=== PATIENT | male | born 1935 | race Hispanic/Latino ===

== ENCOUNTER 2019-10-11 13:14 | Emergency (ER) | payer MEDICARE ==
[2019-10-11 13:44] VITALS: BP 168/68
--- NOTE | 2019-10-11 14:36 | Emergency Department Report ---
- General Chief complaint: Weakness Stated complaint: GENERAL WEAKNESS Time Seen by Provider: 10/11/19 14:20 Source: patient Mode of arrival: Stretcher Limitations: No Limitations - History of Present Illness Initial comments: 83-year male with a past medical history of chronic A. fib currently on aspirin 81 mg and melanoma currently on immunotherapy Opdivo once a month (last melissa atment 2 weeks ago) presents to the hospital planing of 2 days of generalized weakness with increased lightheadedness and dyspnea on exertion today. Patient complains of mild intermittent headache which is currently not present. He denies chest pain, abdominal pain, nausea, vomiting, poor appetite, dysuria, diarrhea, melena, hematochezia, recent travel, calf tenderness, leg edema, history of PE/DVT. Patient was on Xarelto in the past but discontinued due to GI bleeding without identifiable source after GI work-up. Patient states he only takes aspirin and a glaucoma medication and denies other medications at this time. PMD: Dr. Maulik Putnam, solutions consultant: Dr. Hi with [facility] - Related Data Allergies Allergy/AdvReac Type Severity Reaction Status Date / Time bacitracin Allergy Unknown Verified 10/11/19 13:37 [From Neosporin ([id number])] neomycin Allergy Unknown Verified 10/11/19 13:37 [From Neosporin ([id number])] polymyxin B Allergy Unknown Verified 10/11/19 13:37 [From Neosporin ([id number])] ED Review of Systems ROS: Stated complaint: GENERAL WEAKNESS Other details as noted in HPI Comment: All other systems reviewed and negative ED Past Medical Hx - Past Medical History Previous Medical History?: Yes Additional medical history: afib, skin cancer - Surgical History Past Surgical History?: No - Social History Smoking Status: Never Smoker Substance Use Type: None ED Physical Exam - General Limitations: No Limitations - Other Other exam information: General: No acute distress Head: Atraumatic Eyes: normal appearance ENT: Moist mucous membranes Neck: Normal appearance, no midline tenderness Chest: Clear to auscultation bilaterally CV: Irregular rhythm normal rate greater than 60 on exam Abdomen: Soft, normal bowel sounds, nontender, nondistended, no rebound or guarding Back: Normal inspection Extremity: Normal inspection, full range of motion, no calf tenderness or leg edema Neuro: Alert O x 3, no facial asymmetry, speech clear, no gross motor sensory deficit, [id number] function intact Psych: Appropriate behavior Skin: No rash - Assessment Assessment Interval: Baseline - Level of Consciousness 1a. Level of Consciousness: alert/keenly responsive - LOC Questions 1b. LOC Questions: answers both correctly - LOC Command 1c. LOC Commands: performs tasks correctly - Best Gaze 2. Best Gaze: normal - Visual 3. Visual: no visual loss - Facial Palsy 4. Facial Palsy: normal symmetrical movement - Motor Arm 5a. Motor Arm Left: no drift 5b. Motor Arm Right: no drift - Motor Leg 6a. Motor Leg Left: no drift 6b. Motor Leg Right: no drift - Limb Ataxia 7. Limb Ataxia: absent - Sensory 8. Sensory: normal - Best Language 9. Best Language: no aphasia - Dysarthria 10. Dysarthria: normal - Extinction and Inattention 11. Extinction/Inattention: no abnormality - Scoring Total Score: 0 Stroke Severity: No Stroke Symptoms ED Course Vital Signs 10/11/19 13:37 Temperature 98.5 F Pulse Rate 67 Respiratory 16 Rate Blood Pressure 168/68 O2 Sat by Pulse 97 Oximetry - Reevaluation(s) Reevaluation #1: 10/11/19 16:45 pt not sure if he wants to be admitted pt will be walked around the department to see how he feels then he will make a decision. 10/11/19 16:58 pt states he feels better and declines admission at this time ED Medical Decision Making - Lab Data Result diagrams: 10/11/19 14:43 10/11/19 14:43 Lab Results 10/11/19 10/11/19 10/11/19 Range/Units 14:43 14:43 14:43 WBC 7.7 (4.5-11.0) K/mm3 RBC 4.46 (3.65-5.03) M/mm3 Hgb 15.0 (11.8-15.2) gm/dl Hct 43.9 (35.5-45.6) % MCV 98 H (84-94) fl MCH 34 H (28-32) pg MCHC 34 (32-34) % RDW 13.7 (13.2-15.2) % Plt Count 201 (140-440) K/mm3 Lymph % (Auto) 14.1 (13.4-35.0) % [place] % (Auto) 9.5 H (0.0-7.3) % Eos % (Auto) 1.9 (0.0-4.3) % Baso % (Auto) 0.4 (0.0-1.8) % Lymph # 1.1 L (1.2-5.4) K/mm3 [place] # 0.7 (0.0-0.8) K/mm3 Eos # 0.1 (0.0-0.4) K/mm3 Baso # 0.0 (0.0-0.1) K/mm3 Seg Neutrophils % 74.1 H (40.0-70.0) % Seg Neutrophils # 5.7 (1.8-7.7) K/mm3 PT 13.4 (12.2-14.9) Sec. INR 1.01 (0.87-1.13) APTT 27.8 (24.2-36.6) Sec. D-Dimer 217.57 (0-234) ng/mlDDU Sodium 140 (137-145) mmol/L Potassium 4.2 (3.6-5.0) mmol/L Chloride 100.9 (98-107) mmol/L Carbon Dioxide 23 (22-30) mmol/L Anion Gap 20 mmol/L BUN 13 (9-20) mg/dL Creatinine 0.8 (0.8-1.5) mg/dL Estimated GFR > 60 ml/min BUN/Creatinine Ratio 16 % Glucose 95 (75-100) mg/dL Calcium 9.5 (8.4-10.2) mg/dL Magnesium 2.30 (1.7-2.3) mg/dL Total Bilirubin 0.40 (0.1-1.2) mg/dL AST 27 (5-40) units/L ALT 16 (7-56) units/L Alkaline Phosphatase 72 (35-129) units/L Troponin T < 0.010 (0.00-0.029) ng/mL Total Protein 7.3 (6.3-8.2) g/dL Albumin 4.1 (3.9-5) g/dL Albumin/Globulin Ratio 1.3 % TSH (0.270-4.200) mlU/mL Free T4 (0.76-1.46) ng/dL Urine Color (Yellow) Urine Turbidity (Clear) Urine pH (5.0-7.0) Ur Specific Bar[place] (1.003-1.030) Urine Protein (Negative) mg/dL Urine Glucose (UA) (Negative) mg/dL Urine Ketones (Negative) mg/dL Urine Blood (Negative) Urine Nitrite (Negative) Urine Bilirubin (Negative) Urine Urobilinogen (<2.0) mg/dL Ur Leukocyte Esterase (Negative) Urine WBC (Auto) (0.0-6.0) /HPF Urine RBC (Auto) (0.0-6.0) /HPF 10/11/19 10/11/19 Range/Units 14:43 15:01 WBC (4.5-11.0) K/mm3 RBC (3.65-5.03) M/mm3 Hgb (11.8-15.2) gm/dl Hct (35.5-45.6) % MCV (84-94) fl MCH (28-32) pg MCHC (32-34) % RDW (13.2-15.2) % Plt Count (140-440) K/mm3 Lymph % (Auto) (13.4-35.0) % [place] % (Auto) (0.0-7.3) % Eos % (Auto) (0.0-4.3) % Baso % (Auto) (0.0-1.8) % Lymph # (1.2-5.4) K/mm3 [place] # (0.0-0.8) K/mm3 Eos # (0.0-0.4) K/mm3 Baso # (0.0-0.1) K/mm3 Seg Neutrophils % (40.0-70.0) % Seg Neutrophils # (1.8-7.7) K/mm3 PT (12.2-14.9) Sec. INR (0.87-1.13) APTT (24.2-36.6) Sec. D-Dimer (0-234) ng/mlDDU Sodium (137-145) mmol/L Potassium (3.6-5.0) mmol/L Chloride (98-107) mmol/L Carbon Dioxide (22-30) mmol/L Anion Gap mmol/L BUN (9-20) mg/dL Creatinine (0.8-1.5) mg/dL Estimated GFR ml/min BUN/Creatinine Ratio % Glucose (75-100) mg/dL Calcium (8.4-10.2) mg/dL Magnesium (1.7-2.3) mg/dL Total Bilirubin (0.1-1.2) mg/dL AST (5-40) units/L ALT (7-56) units/L Alkaline Phosphatase (35-129) units/L Troponin T (0.00-0.029) ng/mL Total Protein (6.3-8.2) g/dL Albumin (3.9-5) g/dL Albumin/Globulin Ratio % TSH 4.950 H (0.270-4.200) mlU/mL Free T4 0.96 (0.76-1.46) ng/dL Urine Color Straw (Yellow) Urine Turbidity Clear (Clear) Urine pH 6.0 (5.0-7.0) Ur Specific Barling 1.004 (1.003-1.030) Urine Protein <15 mg/dl (Negative) mg/dL Urine Glucose (UA) Neg (Negative) mg/dL Urine Ketones Neg (Negative) mg/dL Urine Blood Sm (Negative) Urine Nitrite Neg (Negative) Urine Bilirubin Neg (Negative) Urine Urobilinogen < 2.0 (<2.0) mg/dL Ur Leukocyte Esterase Neg (Negative) Urine WBC (Auto) < 1.0 (0.0-6.0) /HPF Urine RBC (Auto) 2.0 (0.0-6.0) /HPF - EKG Data -: EKG Interpreted by Fl EKG shows normal: ST-T waves (No STEMI, anterior septal infarct) Rate: bradycardia (53) - EKG Data When compared to previous EKG there are: previous EKG unavailable - Radiology Data Radiology results: report reviewed CHEST 1 VIEW INDICATION: MAIN: Weakness, sob TODAY. COMPARISON: None FINDINGS: Support devices: Right Tteohr-d-Xfak terminates in the lower SVC. Heart: Within normal limits. Lungs/Pleura: No acute air space or interstitial disease. Additional findings: None. IMPRESSION: No acute findings. CT HEAD WITHOUT CONTRAST INDICATION / CLINICAL INFORMATION: gen weakness, hx of melanoma, intermittent mendenhall. TECHNIQUE: All CT scans at this location are performed using CT dose reduction for ALARA by means of automated exposure control. COMPARISON: None available. FINDINGS: HEMORRHAGE: No evidence of intracranial hemorrhage or extra-axial fluid collection. EXTRA-AXIAL SPACES: Cortical sulci, sylvian fissures and basilar cisterns have an unremarkable appearance. VENTRICULAR SYSTEM: The ventricular system is of normal size and configuration. CEREBRAL PARENCHYMA: No suspicious hypodensities. Bilateral benign basal ganglia calcifications. There is no indication of recent infarction. MIDLINE SHIFT OR HERNIATION: There is no mass effect. CEREBELLUM / BRAINSTEM: Brainstem and cerebellum have an unremarkable appearance. INTRACRANIAL VESSELS:No abnormalities are identified on this noncontrast head CT. ORBITS: visualized portions of the orbits have an unremarkable appearance. SOFT TISSUES of HEAD: No significant abnormality. CALVARIUM: Evaluation of bone windows reveals no abnormalities. PARANASAL SINUSES / MASTOID AIR CELLS: Paran victor hugo sinuses are free from inflammatory mucosal disease. Mastoid air cells are normally pneumatized. ADDITIONAL FINDINGS: None. IMPRESSION: 1. No acute intracranial abnormality. - Medical Decision Making Admission has been recommended due to patient's symptoms of shortness of breath and generalized weakness today. ED work-up is unremarkable and observation and inpatient cardiac evaluation recommended. Patient ambulated in the ED and states he feels normal and does not want admission at this time. Patient encouraged to follow-up very closely with his primary care doctor and solutions consultant for reassessment and to return if symptoms worsen. Patient's son is a firebrick layer helper and states that they will closely observe him tonight. - Differential Diagnosis Infection, arrhythmia, PE, anemia, dehydration, thyroid disease, bradycardi Critical Care Time: No Critical care attestation.: If time is entered above; I have spent that time in minutes in the direct care of this critically ill patient, excluding procedure time. ED Disposition Clinical Impression: Chronic atrial fibrillation, Bradycardia, Generalized weakness, Melanoma, SOB (shortness of breath) Disposition: DC-01 TO HOME OR SELFCARE Is pt being admited?: No Condition: Stable Instructions: Atrial Fibrillation (ED), Weakness (ED) Additional Instructions: Follow-up with your doctor or doctor/clinic provided. Return if symptoms worsen as indicated by your discharge instructions. Referrals: ZAIRA-ALEJANDRO KAMARA MD [Staff Physician] - [facility] (1-2 days) JACOB PUTNAM MD [Primary Care Provider] - [facility] (1-2 days) Time of Disposition: 16:40 (Dr Rivera/hosp)
--- NOTE | 2019-10-11 15:10 | XRay Report ---
CHEST 1 VIEW INDICATION: MAIN: Weakness, sob TODAY. COMPARISON: None FINDINGS: Support devices: Right Qbcvzu-n-Jazq terminates in the lower SVC. Heart: Within normal limits. Lungs/Pleura: No acute air space or interstitial disease. Additional findings: None. IMPRESSION: No acute findings. Signer Name: Subhash Montero Jr, MD Signed: 10/11/2019 3:05 PM Workstation Name: [id number]
[2019-10-11 15:12] LABS: Basophils % (Auto) 0.4 % (0.0-1.8); Eosinophils # (Auto) 0.1 K/mm3 (0.0-0.4); Eosinophils % (Auto) 1.9 % (0.0-4.3); Hematocrit 43.9 % (35.5-45.6); Lymphocytes # (Auto) 1.1 K/mm3 (1.2-5.4); Lymphocytes % (Auto) 14.1 % (13.4-35.0); Mean Corpuscular HGB Conc 34 % (32-34); Mean Corpuscular Volume 98 fl (84-94); Monocytes # (Auto) 0.7 K/mm3 (0.0-0.8); Monocytes % (Auto) 9.5 % (0.0-7.3); Platelet Count 201 K/mm3 (140-440); Red Blood Count 4.46 M/mm3 (3.65-5.03); Red Cell Distribution Width 13.7 % (13.2-15.2)
[2019-10-11 15:21] LABS: INR 1.01 (0.87-1.13)
[2019-10-11 15:22] LABS: Partial Thromboplastin Time 27.8 Sec. (24.2-36.6)
[2019-10-11 15:25] LABS: Bilirubin,Urine NEG (Negative); Blood,Urine SM (Negative); Color,Urine Straw (Yellow); Protein,Urine <15 mg/dL mg/dL (Negative); Urobilinogen,Urine < 2.0 mg/dL (<2.0); WBC,Urine < 1.0 /HPF (0.0-6.0)
[2019-10-11 15:25] LABS: Alanine Aminotransferase 16 units/L (7-56); Albumin 4.1 g/dL (3.9-5); BUN/Creatinine Ratio 16; Blood Urea Nitrogen 13 mg/dL (9-20); Calcium 9.5 mg/dL (8.4-10.2); Hemolysis Index 11
[2019-10-11 15:31] LABS: Free T4 (Free Thyroxine) 0.96 ng/dL (0.76-1.46)
--- NOTE | 2019-10-11 16:27 | Cat Scan Report ---
CT HEAD WITHOUT CONTRAST INDICATION / CLINICAL INFORMATION: gen weakness, hx of melanoma, intermittent mendenhall. TECHNIQUE: All CT scans at this location are performed using CT dose reduction for ALARA by means of automated e xposure control. COMPARISON: None available. FINDINGS: HEMORRHAGE: No evidence of intracranial hemorrhage or extra-axial fluid collection. EXTRA-AXIAL SPACES: Cortical sulci, sylvian fissures and basilar cisterns have an unremarkable appear ance. VENTRICULAR SYSTEM: The ventricular system is of normal size and configuration. CEREBRAL PARENCHYMA: No suspicious hypodensities. Bilateral benign basal ganglia calcifications. Ther e is no indication of recent infarction. MIDLINE SHIFT OR HERNIATION: There is no mass effect. CEREBELLUM / BRAINSTEM: Brainstem and cerebellum have an unremarkable appearance. INTRACRANIAL VESSELS:No abnormalities are identified on this noncontrast head CT. ORBITS: visualized portions of the orbits have an unremarkable appearance. SOFT TISSUES of HEAD: No significant abnormality. CALVARIUM: Evaluation of bone windows reveals no abnormalities. PARANASAL SINUSES / MASTOID AIR CELLS: Paranasal sinuses are free from inflammatory mucosal disease. Mastoid air cells are normally pneumatized. ADDITIONAL FINDINGS: None. IMPRESSION: 1. No acute intracranial abnormality. Signer Name: Alejandro Griffin MD Signed: 10/11/2019 4:23 PM Workstation Name: [id number]
--- NOTE | 2019-10-11 16:40 | History and Physical Report ---
History of Present Illness Chief complaint: I feel weak I think he may have overdid it History of present illness: 83 YO Male with Atrial Fib on ASA, Melanoma on currently on immunotherapy with Opdivo (last treatment 2 weeks ago). Patient states that he has experienced generalized weakness over the past 2 days with worsening symptoms over the past 12 hours. Patient also acknowledges lightheadedness as well as dyspnea on exertion. EMS notified and upon arrival the patient was found to be in distress and subsequently transported to [facility] for further care and evaluation. Patient seen and evaluated in the emergency department. Lab and imaging studies reviewed. Patient found to have generalized weakness suspect is secondary to immunotherapy. Patient treated with IV fluid resuscitation therapy with with improvement in symptoms. Pt patient placed in observation status for further observation. Advanced care planning conducted in ED. Past History Past Medical History: cancer Past Surgical History: No surgical history, Other (Reviewed) Social history: , lives with family Family history: no significant family history (Reviewed) Medications and Allergies Allergies Allergy/AdvReac Type Severity Reaction Status Date / Time bacitracin Allergy Unknown Verified 10/11/19 13:37 [From Neosporin ([id number])] neomycin Allergy Unknown Verified 10/11/19 13:37 [From Neosporin ([id number])] polymyxin B Allergy Unknown Verified 10/11/19 13:37 [From Neosporin ([id number])] Review of Systems Constitutional: weakness, no weight loss, no weight gain, no fever, no chills Ears, nose, mouth and throat: no ear pain, no ear discharge, no tinnitis, no nasal discharge Cardiovascular: no chest pain, no orthopnea, no palpitations, no rapid/irregular heart beat, no syncope Respiratory: no cough, no cough with sputum, no excessive sputum, no shortness of breath Gastrointestinal: no abdominal pain, no nausea, no vomiting, no constipation, no change in bowel habits, no hematemesis Genitourinary Male: no hematuria, no flank pain, no discharge, no urinary frequency, no urinary hesitancy, no nocturia Rectal: no pain, no incontinence, no bleeding Musculoskeletal: no neck stiffness, no neck pain, no arm numbness/tingling, no low back pain, no leg numbness/tingling, no redness of joints Integumentary: no rash, no pruritis, no redness, no sores Psychiatric: no anxiety, no memory loss, no change in sleep habits, no sleep disturbances, no insomnia, no change in appetite, no change in libido, no suicidal ideation, no disorientation, no hallucinations Endocrine: no cold intolerance, no heat intolerance, no polyphagia, no polydipsia, no polyuria, no excessive sweating, no flushing Hematologic/Lymphatic: no easy bruising, no easy bleeding, no lymphadenopathy, no lymphedema Allergic/Immunologic: no urticaria, no wheezing, no persistent infections, no a naphylaxis, no angioedema Exam - Constitutional Vitals: Temp Pulse Resp BP Pulse Ox 98.5 F 67 16 168/68 97 10/11/19 13:37 10/11/19 13:37 10/11/19 13:37 10/11/19 13:37 10/11/19 13:37 General appearance: Present: no acute distress, well-nourished - EENT Eyes: Present: PERRL ENT: hearing intact, clear oral mucosa - Neck Neck: Present: supple, normal ROM - Respiratory Respiratory effort: normal Respiratory: bilateral: CTA - Cardiovascular Heart Sounds: Present: S1 & S2. Absent: rub, click - Extremities Extremities: pulses symmetrical, No edema Peripheral Pulses: within normal limits - Abdominal General gastrointestinal: Present: soft, non-tender, non-distended, normal bowel sounds Male genitourinary: Present: normal - Integumentary Integumentary: Present: clear, warm, dry - Musculoskeletal Musculoskeletal: gait normal, strength equal bilaterally - Psychiatric Psychiatric: appropriate mood/affect, intact judgment & insight - Neurologic Neurologic: CNII-XII intact, moves all extremities Results - Labs CBC & Chem 7: 10/11/19 14:43 10/11/19 14:43 Labs: Abnormal lab results 10/11/19 10/11/19 Range/Units 14:43 14:43 MCV 98 H (84-94) fl MCH 34 H (28-32) pg Mcminn % (Auto) 9.5 H (0.0-7.3) % Lymph # 1.1 L (1.2-5.4) K/mm3 Seg Neutrophils % 74.1 H (40.0-70.0) % TSH 4.950 H (0.270-4.200) mlU/mL Assessment and Plan - Patient Problems (1) Chronic atrial fibrillation Current Visit: Yes Status: Acute Plan to address problem: Continue antiplatelet therapy/anticoagulation with full dose aspirin, supportive care, (2) Generalized weakness Current Visit: Yes Status: Acute Plan to address problem: Suspected secondary to volume depletion, as well as immunomodulators therapy. IV fluid resuscitation therapy, supportive care. (3) Melanoma Current Visit: Yes Status: Acute Plan to address problem: Continue immunomodulation therapy. Supportive care, outpatient oncology follow- up. (4) Advance care planning Current Visit: Yes Status: Acute Plan to address problem: Patient is full code, disease education conducted, patient and family acknowledged understanding care plan.
[2019-10-11] MEDS ORDERED: ACETAMINOPHEN 325 MG TAB PO PRN (16:46)
[2019-10-11] MEDS ORDERED: ONDANSETRON 4 MG/2 ML INJ IV PRN (16:46)
[2019-10-11] MEDS ORDERED: ALBUTEROL 2.5 MG/3 ML NEBU IH PRN (16:46)
[2019-10-11] MEDS ORDERED: SODIUM CHLORIDE 0.9% 1000 ML 1,000 ML IV SCH (17:00)
== END 2019-10-11 17:45 | disposition home or self-care (01) ==
LOC: ED 13:14
DX: I48.20 Chronic atrial fibrillation, unspecified (principal); R06.02 Shortness of breath; R53.1 Weakness; R00.1 Bradycardia, unspecified; C43.9 Malignant melanoma of skin, unspecified; Z85.3 Personal history of malignant neoplasm of breast; Z79.899 Other long term (current) drug therapy; Z88.8 Allergy status to other drugs, medicaments and biological substances
CPT/HCPCS: 36415; 70450; 71045; 80053; 81001; 83735; 83880; 84439; 84443; 84484; 85025; 85379; 85610; 85730; 93005; 93010

== ENCOUNTER 2022-02-27 21:46 | Inpatient (IN) | payer MEDICARE ==
--- NOTE | 2022-02-27 22:38 | XRay Report ---
CHEST 1 VIEW INDICATION / CLINICAL INFORMATION: weakness. COMPARISON: Chest x-ray 10/11/2019 FINDINGS: SUPPORT DEVICES: Right-sided venous access device is stable. HEART / MEDIASTINUM: Borderline cardiomegaly, stable. LUNGS / PLEURA: Lungs are clear for degree of inspiration and technique utilized. BONES: No significant osseous abnormality. ADDITIONAL FINDINGS: No significant additional findings. IMPRESSION: 1. No active cardiopulmonary disease. Signer Name: Gordon Mota II, MD Signed: 02/27/2022 10:34 PM Workstation Name: [id number]
--- NOTE | 2022-02-27 22:48 | Cat Scan Report ---
CT HEAD WITHOUT CONTRAST INDICATION / CLINICAL INFORMATION: blurred/dizziness. TECHNIQUE: CT head was performed without administration of intravenous contrast. All CT scans at this location are performed using CT dose reduction for ALARA by means of automated exposure control. COMPARISON: None available. FINDINGS: CEREBRAL HEMISPHERES: Generalized atrophy and bilateral regions of periventricular white matter hypoa ttenuation compatible with microvascular ischemia are demonstrated. No midline shift. Basal cisterns patent. HEMORRHAGE: None. CEREBELLUM / BRAINSTEM: No significant abnormality. ORBITS: No significant abnormality. Prior bilateral cataract surgery. SOFT TISSUES: No significant abnormality. SKULL: No significant abnormality. PARANASAL SINUSES / MASTOID AIR CELLS: Normal as visualized. ADDITIONAL FINDINGS: None. IMPRESSION: 1. No acute intracranial abnormality. Signer Name: Gordon Mota II, MD Signed: 02/27/2022 10:44 PM Workstation Name: [id number]
[2022-02-27 22:57] LABS: Basophils % (Auto) 0.3 % (0.0-1.8); Eosinophils # (Auto) 0.2 K/mm3 (0.0-0.4); Hematocrit 43.4 % (35.5-45.6); Hemoglobin 14.8 gm/dl (11.8-15.2); Lymphocytes # (Auto) 1.4 K/mm3 (1.2-5.4); Lymphocytes % (Auto) 20.8 % (13.4-35.0); Mean Corpuscular HGB Conc 34 % (32-34); Mean Corpuscular Volume 97 fl (84-94); Monocytes # (Auto) 0.8 K/mm3 (0.0-0.8); Monocytes % (Auto) 12.8 % (0.0-7.3); Platelet Count 168 K/mm3 (140-440); Red Blood Count 4.46 M/mm3 (3.65-5.03); Red Cell Distribution Width 13.7 % (13.2-15.2)
[2022-02-27 23:08] LABS: INR 0.99 (0.87-1.13)
[2022-02-27 23:09] LABS: Partial Thromboplastin Time 29.6 Sec. (24.2-36.6)
[2022-02-27 23:14] LABS: Alanine Aminotransferase 36 units/L (7-56); Albumin 4.4 g/dL (3.9-5); BUN/Creatinine Ratio 16; Blood Urea Nitrogen 13 mg/dL (9-20); Calcium 10.1 mg/dL (8.4-10.2); Hemolysis Index 14
--- NOTE | 2022-02-28 00:32 | Emergency Department Report ---
ED General Adult HPI - General Chief complaint: Neuro Symptoms/Deficit Stated complaint: WEAKNESS, BLURRY VISION Time Seen by Provider: 02/27/22 21:57 Source: patient, EMS Mode of arrival: Stretcher Limitations: No Limitations - History of Present Illness Initial comments: Patient presents to the emergency department the chief complaint of blurred vision with a weak lower leg that occurred around 7:30 PM while he was at [employer]. Patient states the symptoms lasted for hour and a half. During the interval the patient left urgent drove home. Patient is status post a stroke 8 months ago. He denies any chest pain, shortness breath, abdominal pain -: Sudden Severity scale (0 -10): 0 Consistency: now resolved Improves with: none Worsens with: none Associated Symptoms: denies other symptoms Treatments Prior to Arrival: none - Related Data Allergies Allergy/AdvReac Type Severity Reaction Status Date / Time bacitracin Allergy Unknown Verified 02/27/22 22:22 [From Neosporin ([id number])] doxycycline Allergy Unknown Verified 02/27/22 22:22 neomycin Allergy Unknown Verified 02/27/22 22:22 [From Neosporin ([id number])] polymyxin B Allergy Unknown Verified 02/27/22 22:22 [From Neosporin ([id number])] Sulfa (Sulfonamide Allergy Unknown Verified 02/27/22 22:22 Antibiotics) ED Review of Systems ROS: Stated complaint: WEAKNESS, BLURRY VISION Other details as noted in HPI Comment: All other systems reviewed and negative Constitutional: denies: chills, fever Eyes: denies: eye pain, eye discharge, vision change ENT: denies: ear pain, throat pain Respiratory: denies: cough, shortness of breath, wheezing Cardiovascular: denies: chest pain, palpitations Endocrine: no symptoms reported Gastrointestinal: denies: abdominal pain, nausea, diarrhea Genitourinary: denies: urgency, dysuria Musculoskeletal: denies: back pain, joint swelling, arthralgia Skin: denies: rash, lesions Neurological: denies: headache, weakness, paresthesias Psychiatric: denies: anxiety, depression Hematological/Lymphatic: denies: easy bleeding, easy bruising ED Past Medical Hx - Past Medical History Previous Medical History?: Yes Hx CVA: Yes (8 mos ago) Additional medical history: afib, skin cancer - Surgical History Past Surgical History?: Yes Additional Surgical History: port right chest - Social History Smoking Status: Former Smoker Substance Use Type: Alcohol ED Physical Exam - General Limitations: No Limitations General appearance: alert, in no apparent distress - Head Head exam: Present: atraumatic, normocephalic - Eye Eye exam: Present: normal appearance, PERRL, EOMI - ENT ENT exam: Present: mucous membranes moist - Neck Neck exam: Present: normal inspection - Respiratory Respiratory exam: Present: normal lung sounds bilaterally. Absent: respiratory distress - Cardiovascular Cardiovascular Exam: Present: regular rate, normal rhythm. Absent: systolic murmur, diastolic murmur, rubs, gallop - GI/Abdominal GI/Abdominal exam: Present: soft, normal bowel sounds. Absent: distended, tenderness - Rectal Rectal exam: Present: deferred - Extremities Exam Extremities exam: Present: normal inspection - Back Exam Back exam: Present: normal inspection - Neurological Exam Neurological exam: Present: alert, oriented X3, CN II-XII intact. Absent: motor sensory deficit - Psychiatric Psychiatric exam: Present: normal affect, normal mood - Skin Skin exam: Present: warm, dry, intact, normal color. Absent: rash ED Course Vital Signs 02/27/22 02/27/22 02/27/22 22:15 22:46 23:00 Temperature 98.3 F Pulse Rate 65 61 64 Respiratory 13 13 17 Rate Blood Pressure 155/93 155/93 137/83 Blood Pressure 155/93 [Left] O2 Sat by Pulse 96 94 98 Oximetry 02/27/22 02/27/22 02/27/22 23:16 23:30 23:46 Temperature Pulse Rate 64 65 70 Respiratory 18 21 16 Rate Blood Pressure 163/84 155/93 142/79 Blood Pressure [Left] O2 Sat by Pulse 95 98 96 Oximetry 02/28/22 02/28/22 02/28/22 00:00 00:16 00:30 Temperature Pulse Rate 70 65 70 Respiratory 17 16 14 Rate Blood Pressure 142/79 142/79 157/76 Blood Pressure [Left] O2 Sat by Pulse 97 95 97 Oximetry 02/28/22 02/28/22 00:46 01:00 Temperature Pulse Rate 67 66 Respiratory 22 23 Rate Blood Pressure 178/90 178/90 Blood Pressure [Left] O2 Sat by Pulse 96 95 Oximetry ED Medical Decision Making - Lab Data Result diagrams: 02/27/22 22:35 02/27/22 22:35 Lab Results 02/27/22 02/27/22 02/27/22 Range/Units 22:35 22:35 22:35 WBC 6.6 (4.5-11.0) K/mm3 RBC 4.46 (3.65-5.03) M/mm3 Hgb 14.8 (11.8-15.2) gm/dl Hct 43.4 (35.5-45.6) % MCV 97 H (84-94) fl MCH 33 H (28-32) pg MCHC 34 (32-34) % RDW 13.7 (13.2-15.2) % Plt Count 168 (140-440) K/mm3 Lymph % (Auto) 20.8 (13.4-35.0) % [place] % (Auto) 12.8 H (0.0-7.3) % Eos % (Auto) 3.0 (0.0-4.3) % Baso % (Auto) 0.3 (0.0-1.8) % Lymph # (Auto) 1.4 (1.2-5.4) K/mm3 [place] # (Auto) 0.8 (0.0-0.8) K/mm3 Eos # (Auto) 0.2 (0.0-0.4) K/mm3 Baso # (Auto) 0.0 (0.0-0.1) K/mm3 Seg Neutrophils % 63.1 (40.0-70.0) % Seg Neutrophils # 4.1 (1.8-7.7) K/mm3 PT 14.2 (12.2-14.9) Sec. INR 0.99 (0.87-1.13) APTT 29.6 (24.2-36.6) Sec. Sodium 141 (137-145) mmol/L Potassium 4.1 (3.6-5.0) mmol/L Chloride 100.1 (98-107) mmol/L Carbon Dioxide 30 (22-30) mmol/L Anion Gap 15 mmol/L BUN 13 (9-20) mg/dL Creatinine 0.8 (0.8-1.3) mg/dL Estimated GFR > 60 ml/min BUN/Creatinine Ratio 16 % Glucose 126 H (75-100) mg/dL Calcium 10.1 (8.4-10.2) mg/dL Magnesium 2.10 (1.7-2.3) mg/dL Total Bilirubin 0.70 (0.1-1.2) mg/dL AST 38 (5-40) units/L ALT 36 (7-56) units/L Alkaline Phosphatase 106 (35-129) units/L Troponin T (0.00-0.029) ng/mL Total Protein 7.2 (6.3-8.2) g/dL Albumin 4.4 (3.9-5) g/dL Albumin/Globulin Ratio 1.6 % 02/27/22 Range/Units 22:35 WBC (4.5-11.0) K/mm3 RBC (3.65-5.03) M/mm3 Hgb (11.8-15.2) gm/dl Hct (35.5-45.6) % MCV (84-94) fl MCH (28-32) pg MCHC (32-34) % RDW (13.2-15.2) % Plt Count (140-440) K/mm3 Lymph % (Auto) (13.4-35.0) % [place] % (Auto) (0.0-7.3) % Eos % (Auto) (0.0-4.3) % Baso % (Auto) (0.0-1.8) % Lymph # (Auto) (1.2-5.4) K/mm3 [place] # (Auto) (0.0-0.8) K/mm3 Eos # (Auto) (0.0-0.4) K/mm3 Baso # (Auto) (0.0-0.1) K/mm3 Seg Neutrophils % (40.0-70.0) % Seg Neutrophils # (1.8-7.7) K/mm3 PT (12.2-14.9) Sec. INR (0.87-1.13) APTT (24.2-36.6) Sec. Sodium (137-145) mmol/L Potassium (3.6-5.0) mmol/L Chloride (98-107) mmol/L Carbon Dioxide (22-30) mmol/L Anion Gap mmol/L BUN (9-20) mg/dL Creatinine (0.8-1.3) mg/dL Estimated GFR ml/min BUN/Creatinine Ratio % Glucose (75-100) mg/dL Calcium (8.4-10.2) mg/dL Magnesium (1.7-2.3) mg/dL Total Bilirubin (0.1-1.2) mg/dL AST (5-40) units/L ALT (7-56) units/L Alkaline Phosphatase (35-129) units/L Troponin T < 0.010 (0.00-0.029) ng/mL Total Protein (6.3-8.2) g/dL Albumin (3.9-5) g/dL Albumin/Globulin Ratio % - EKG Data EKG shows normal: sinus rhythm - EKG Data Interpretation: other (afib; inverted T waves lateral leads ) - Radiology Data Radiology results: report reviewed - Medical Decision Making discussed results with patient Critical care attestation.: If time is entered above; I have spent that time in minutes in the direct care of this critically ill patient, excluding procedure time. ED Disposition Clinical Impression: Blurred vision Disposition: 09 ADMITTED INPATIENT Is pt being admited?: Yes Does the pt Need Aspirin: No Condition: Stable Instructions: Blurred Vision, Adult Referrals: PRIMARY CARE, [Primary Care Provider] - 3-5 Days
[2022-02-28] MEDS ORDERED: ASPIRIN 81 MG TAB CHEW PO ONE (01:29)
[2022-02-28] MEDS ORDERED: ONDANSETRON 4 MG/2 ML INJ IV PRN (04:15)
[2022-02-28] MEDS ORDERED: ACETAMINOPHEN 325 MG TAB PO PRN (04:15)
[2022-02-28] MEDS ORDERED: SODIUM CHLORIDE 0.9% 1000 ML 1,000 ML IV SCH (04:15)
[2022-02-28] MEDS ORDERED: MORPHINE 4 MG/1 ML INJ IV PRN (04:15)
[2022-02-28] MEDS ORDERED: MORPHINE 2 MG/1 ML INJ IV PRN (04:15)
[2022-02-28] MEDS ORDERED: ALBUTEROL 2.5 MG/3 ML NEBU IH PRN (04:15)
--- NOTE | 2022-02-28 04:26 | History and Physical Report ---
History of Present Illness Date of examination: 02/28/22 Date of admission: 02/28/22 Chief complaint: Weakness Blurred vision History of present illness: 86 years old male with history of CVA, A. fib, skin cancer was brought to the emergency department the chief complaint of blurred vision with a weak lower leg that occurred around 7:30 PM while he was at [employer]. Patient states the symptoms lasted for hour and a half. During the interval the patient left urgent drove home. Patient is status post a stroke 8 months ago. He denies any chest pain, shortness breath, abdominal pain In the emergency room initial CT scan of the head shows no acute intracranial abnormality. We will going to admit the patient we will put the patient on CVA pathway Past History Past Medical History: atrial fib, stroke, other (Skin cancer) Past Surgical History: Other (port right chest) Social history: smoking, alcohol abuse Family history: hypertension Medications and Allergies Allergies Allergy/AdvReac Type Severity Reaction Status Date / Time bacitracin Allergy Unknown Verified 02/27/22 22:22 [From Neosporin ([id number])] doxycycline Allergy Unknown Verified 02/27/22 22:22 neomycin Allergy Unknown Verified 02/27/22 22:22 [From Neosporin ([id number])] polymyxin B Allergy Unknown Verified 02/27/22 22:22 [From Neosporin ([id number])] Sulfa (Sulfonamide Allergy Unknown Verified 02/27/22 22:22 Antibiotics) Active Meds: Active Medications Acetaminophen (Acetaminophen 325 Mg Tab) 650 mg PO Q4H PRN PRN Reason: Pain MILD(1-3)/Fever >100.5/BARILLAS Albuterol (Albuterol 2.5 Mg/3 Ml Nebu) 2.5 mg IH Q3HRT PRN PRN Reason: Shortness Of Breath Albuterol/Ipratropium (Ipratropium/Albuterol Sulfate 3 Ml Ampul.Neb) 1 ampul IH Q6HRT WILFRID Aspirin (Aspirin 325 Mg Tab) 325 mg PO QDAY WILFRID Atorvastatin Calcium (Atorvastatin 40 Mg Tab) 40 mg PO QHS WILFRID Famotidine (Famotidine 20 Mg/2 Ml Inj) 20 mg IV BID WILFRID Heparin Sodium (Porcine) (Heparin 5,000 Unit/1 Ml Vial) 5,000 unit SUB-Q Q12HR WILFRID Sodium Chloride (Nacl 0.9% 1000 Ml) 1,000 mls @ 100 mls/hr IV DIRECT WILFRID Morphine Sulfate (Morphine 2 Mg/1 Ml Inj) 2 mg IV Q4H PRN PRN Reason: Pain, Moderate (4-6) Morphine Sulfate (Morphine 4 Mg/1 Ml Inj) 4 mg IV Q4H PRN PRN Reason: Pain , Severe (7-10) Ondansetron HCl (Ondansetron 4 Mg/2 Ml Inj) 4 mg IV Q8H PRN PRN Reason: Nausea And Vomiting Sodium Chloride (Sodium Chloride 0.9% 10 Ml Flush Syringe) 10 ml IV BID WILFRID Sodium Chloride (Sodium Chloride 0.9% 10 Ml Flush Syringe) 10 ml IV PRN PRN PRN Reason: LINE FLUSH Sodium Chloride (Sodium Chloride 0.9% 10 Ml Flush Syringe) 10 ml INJ PRN PRN PRN Reason: LINE FLUSH Review of Systems All systems: negative Constitutional: weakness, other (Blurred vision) Exam - Constitutional Vitals: Temp Pulse Resp BP Pulse Ox 98.3 F 66 23 178/90 95 02/27/22 22:15 02/28/22 01:00 02/28/22 01:00 02/28/22 01:00 02/28/22 01:00 General appearance: Present: no acute distress, well-nourished - EENT Eyes: Present: PERRL ENT: hearing intact, clear oral mucosa - Neck Neck: Present: supple, normal ROM - Respiratory Respiratory effort: normal Respiratory: bilateral: CTA - Cardiovascular Heart Sounds: Present: S1 & S2. Absent: rub, click - Extremities Extremities: pulses symmetrical, No edema Peripheral Pulses: within normal limits - Abdominal General gastrointestinal: Present: soft, non-tender, non-distended, normal bowel sounds Male genitourinary: Present: normal - Integumentary Integumentary: Present: clear, warm, dry - Musculoskeletal Musculoskeletal: gait normal, strength equal bilaterally - Psychiatric Psychiatric: appropriate mood/affect, intact judgment & insight - Neurologic Neurologic: CNII-XII intact, moves all extremities HEART Score - HEART Score Troponin: Troponin T < 0.010 ng/mL (0.00-0.029) 02/27/22 22:35 Results - Labs CBC & Chem 7: 02/27/22 22:35 02/27/22 22:35 Labs: Laboratory Last Values WBC 6.6 K/mm3 (4.5-11.0) 02/27/22 22: RBC 4.46 M/mm3 (3.65-5.03) 02/27/22 22: Hgb 14.8 gm/dl (11.8-15.2) 02/27/22 22: Hct 43.4 % (35.5-45.6) 02/27/22 22: MCV 97 fl (84-94) H 02/27/22 22: MCH 33 pg (28-32) H 02/27/22 22: MCHC 34 % (32-34) 02/27/22 22: RDW 13.7 % (13.2-15.2) 02/27/22 22: Plt Count 168 K/mm3 (140-440) 02/27/22 22: Lymph % (Auto) 20.8 % (13.4-35.0) 02/27/22 22: Long % (Auto) 12.8 % (0.0-7.3) H 02/27/22 22: Eos % (Auto) 3.0 % (0.0-4.3) 02/27/22 22: Baso % (Auto) 0.3 % (0.0-1.8) 02/27/22 22: Lymph # (Auto) 1.4 K/mm3 (1.2-5.4) 02/27/22 22: Long # (Auto) 0.8 K/mm3 (0.0-0.8) 02/27/22 22: Eos # (Auto) 0.2 K/mm3 (0.0-0.4) 02/27/22 22: Baso # (Auto) 0.0 K/mm3 (0.0-0.1) 02/27/22 22: Seg Neutrophils % 63.1 % (40.0-70.0) 02/27/22 22: Seg Neutrophils # 4.1 K/mm3 (1.8-7.7) 02/27/22 22: PT 14.2 Sec. (12.2-14.9) 02/27/22 22:35 INR 0.99 (0.87-1.13) 02/27/22 22:35 APTT 29.6 Sec. (24.2-36.6) 02/27/22 22:35 Sodium 141 mmol/L (137-145) 02/27/22 22:35 Potassium 4.1 mmol/L (3.6-5.0) 02/27/22 22:35 Chloride 100.1 mmol/L (98-107) 02/27/22 22:35 Carbon Dioxide 30 mmol/L (22-30) 02/27/22 22:35 Anion Gap 15 mmol/L 02/27/22 22:35 BUN 13 mg/dL (9-20) 02/27/22 22:35 Creatinine 0.8 mg/dL (0.8-1.3) 02/27/22 22:35 Estimated GFR > 60 ml/min 02/27/22 22:35 BUN/Creatinine Ratio 16 % 02/27/22 22:35 Glucose 126 mg/dL (75-100) H 02/27/22 22:35 Calcium 10.1 mg/dL (8.4-10.2) 02/27/22 22:35 Magnesium 2.10 mg/dL (1.7-2.3) 02/27/22 22:35 Total Bilirubin 0.70 mg/dL (0.1-1.2) 02/27/22 22:35 AST 38 units/L (5-40) 02/27/22 22:35 ALT 36 units/L (7-56) 02/27/22 22:35 Alkaline Phosphatase 106 units/L (35-129) 02/27/22 22:35 Troponin T < 0.010 ng/mL (0.00-0.029) 02/27/22 22:35 Total Protein 7.2 g/dL (6.3-8.2) 02/27/22 22:35 Albumin 4.4 g/dL (3.9-5) 02/27/22 22:35 Albumin/Globulin Ratio 1.6 % 02/27/22 22:35 - Imaging and Cardiology CT Scan - head: report reviewed Assessment and Plan VTE prophylaxis?: Chemical Plan of care discussed with patient/family: Yes - Patient Problems (1) CVA (cerebral vascular accident) Current Visit: Yes Status: Acute Plan to address problem: Admit the patient to the medical telemetry. Aspirin 325 mg p.o. daily. Lipitor 40 mg p.o. daily. PT OT speech evaluation. MRI of the brain. MRA of the brain and neck with and without contrast. Echocardiogram neurology evaluation (2) A-fib Current Visit: Yes Status: Acute Plan to address problem: Aspirin 325 mg p.o. daily. Lipitor 40 mg p.o. daily. Echocardiogram. Consult cardiology if needed (3) Skin cancer Current Visit: Yes Status: Acute Plan to address problem: . Stable. Outpatient follow-up with oncology (4) Blurred vision Current Visit: Yes Status: Acute Plan to address problem: Aspirin 325 mg p.o. daily. Lipitor 40 mg p.o. daily. PT OT speech evalua tion. MRI of the brain. MRA of the brain and neck with and without contrast. Echocardiogram neurology evaluation (5) DVT prophylaxis Current Visit: Yes Status: Acute Plan to address problem: Heparin 5000 units subcu every 12 hours for DVT prophylaxis 80 mg p.o. twice daily for GI prophylaxis. Patient is a full code
[2022-02-28] MEDS ORDERED: IPRATROPIUM/ALBUTEROL SULFATE 3 ML AMPUL.NEB IH SCH (08:00)
[2022-02-28] MEDS ORDERED: ASPIRIN 325 MG TAB PO SCH (10:00)
[2022-02-28] MEDS ORDERED: FAMOTIDINE 20 MG/2 ML INJ IV SCH (10:00)
[2022-02-28] MEDS ORDERED: HEPARIN 5,000 UNIT/1 ML VIAL SUB-Q SCH (10:00)
--- NOTE | 2022-02-28 10:08 | Electrocardiograph Report ---
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
--- NOTE | 2022-02-28 11:01 | Event Note ---
Date: 02/28/22 Patient was evaluated this morning, he was found to be hemodynamically stable. #Possible transient ischemic attack #Blurred vision Status post aspirin 325 mg x 1 in the ED. Continue aspirin 325 mg daily, Lipitor [address] head noncontrast. Pending MRI brain without contrast and MRA head and neck with and without contrast. Pending TTE to evaluate for PFO. Neurology consulted; pending recs Physical therapy and Occupational Therapy consulted; pending recs Pending hemoglobin A1c and lipid profile. #Atrial fibrillation Currently uncertain if patient has prior history of atrial fibrillation. Visualized on EKG performed on presentation. [id number] is 2 (not including possible TIA), meaning patient would ideally be a candidate for anticoagulation. If patient has never been diagnosed with atrial fibrillation, cardiology will be consulted. Pending TTE to evaluate cardiac function in the setting of atrial fibrillation + possible TIA. Continue to monitor. #History of skin cancer Patient will continue to follow-up with outpatient oncology. #Coordination of CARE time: 30 minutes. Total visit time equals 30 or more minutes with greater than 50% spent [id number] on coordination of care and wendie shah. #Advanced care planning -Disease education conducted, care plan discussed, diagnoses discussed, prognosis discussed, and patient acknowledges understanding with care plan -Time: +30 min
[2022-02-28 11:55] VITALS: BP 136/75
--- NOTE | 2022-02-28 14:12 | Discharge Summary ---
Providers - Providers Date of Admission: 02/28/22 04:15 Date of discharge: 02/28/22 Attending physician: NOVA RAMOS MD 02/28/22 04:15 Occupational Therapy Evaluate and Treat [CONS] Routine Comment: Reason For Exam: Neuro deficits Physical Therapy Evaluation and Treat [CONS] Routine Comment: Reason For Exam: Neuro deficits Primary care physician: TRANSCRIPT CLERK Hospitalization Reason for admission: TIAruled out, acute ischemic CVAruled out, blurred vision Condition: Stable Pertinent studies: Reviewed. Procedures: None. Hospital course: The patient is a 86-year-old male with past medical history of prior TIA, atrial fibrillation on aspirin, skin cancer, tobacco dependence, and alcohol dependence who presented to the ED with complaints of bilateral blurred vision that had presented yesterday at approximately 7:30 PM while the patient was at [facility]. Patient describes his symptoms lasting for approximately 1-1/2 hours, and at this point he contacted his son who urged him to present to the ED. Patient denies having any history of CVA. The patient at one point in time was on Xarelto for his atrial fibrillation; however, it resulted in GI bleed. Ever since, the patient has been on aspirin 81 mg daily. On presentation, patient was found to be hemodynamically stable and slightly hypertensive with a blood pressure of 155/93. Patient underwent CT head noncontrast was found to be unremarkable. Patient also underwent MRI brain. Given the patient's description of his symptoms, there is low clinical suspicion for TIA due to the patient describing bilateral acute blurred vision. Patient does have a history of glaucoma and macular degeneration. On exam, the patient endorses episcopalian of his vision with no complaints. The patient and his son expressed understanding in regards to the rare chance that the patient would be experiencing a TIA affecting both eyes. 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 Patient expressed understanding. Patient is medically clear for discharge. Disposition: 01 HOME / SELF CARE / HOMELESS Final Discharge Diagnosis (Prints w/discharge instructions): TIAruled out, acute ischemic CVAruled out, blurred vision, atrial fibrillation, history of skin cancer. Time spent for discharge: 45 min Core Measure Documentation - Palliative Care Palliative Care/ Comfort Measures: Not Applicable - Core Measures Any of the following diagnoses?: none Exam - Constitutional Vitals: Temp Pulse Resp BP Pulse Ox 97.3 F L 64 18 136/75 97 02/28/22 11:44 02/28/22 11:44 02/28/22 12:27 02/28/22 11:44 02/28/22 12:27 General appearance: Present: no acute distress, well-nourished - EENT Eyes: Present: PERRL, EOM intact ENT: hearing intact, clear oral mucosa, dentition normal - Neck Neck: Present: supple, normal ROM - Respiratory Respiratory effort: normal Respiratory: bilateral: CTA - Cardiovascular Rhythm: irregularly irregular Heart Sounds: Present: S1 & S2 - Extremities Extremities: no ischemia, pulses intact, pulses symmetrical, No edema, normal temperature, normal color Peripheral Pulses: within normal limits - Abdominal General gastrointestinal: Present: soft, non-tender, non-distended, normal bowel sounds Male genitourinary: Present: deferred - Rectal Rectal Exam: deferred - Integumentary Integumentary: Present: clear, warm, dry - Musculoskeletal Musculoskeletal: strength equal bilaterally - Psychiatric Psychiatric: appropriate mood/affect, intact judgment & insight, memory intact, cooperative - Neurologic Neurologic: CNII-XII intact, moves all extremities - Allied Health Allied health notes reviewed: nursing Plan Activity: no restrictions Diet: regular Additional Instructions: The patient is a 86-year-old male with past medical history of prior TIA, atrial fibrillation on aspirin, skin cancer, tobacco dependence, and alcohol dependence who presented to the ED with complaints of bilateral blurred vision that had presented yesterday at approximately 7:30 PM while the patient was at [facility]. Patient describes his symptoms lasting for approximately 1-1/2 hours, and at this point he contacted his son who urged him to present to the ED. Patient denies having any history of CVA. The patient at one point in time was on Xarelto for his atrial fibrillation; however, it resulted in GI bleed. Ever since, the patient has been on aspirin 81 mg daily. On presentation, patient was found to be hemodynamically stable and slightly hypertensive with a blood pressure of 155/93. Patient underwent CT head noncontrast was found to be unremarkable. Patient also underwent MRI b rain. Patient received aspirin 325 mg x 1 during his hospitalization. Given the patient's description of his symptoms, there is low clinical suspicion for TIA due to the patient describing bilateral acute blurred vision. Patient does have a history of glaucoma and macular degeneration. On exam, the patient endorses episcopalian of his vision with no complaints. The patient and his son expressed understanding in regards to the rare chance that the patient would be experiencing a TIA affecting both eyes. 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 Patient expressed understanding. Patient is medically clear for discharge. Care Plan Goals: Patient is medically clear for discharge. Assessment: The patient is a 86-year-old male with past medical history of prior TIA, atrial fibrillation on aspirin, skin cancer, tobacco dependence, and alcohol dependence who presented to the ED with complaints of bilateral blurred vision that had presented yesterday at approximately 7:30 PM while the patient was at [facility]. Patient describes his symptoms lasting for approximately 1-1/2 hours, and at this point he contacted his son who urged him to present to the ED. Patient denies having any history of CVA. The patient at one point in time was on Xarelto for his atrial fibrillation; however, it resulted in GI bleed. Ever since, the patient has been on aspirin 81 mg daily. On presentation, patient was found to be hemodynamically stable and slightly hypertensive with a blood pressure of 155/93. Patient underwent CT head noncontrast was found to be unremarkable. Patient also underwent MRI brain. Patient received aspirin 325 mg x 1 during his hospitalization. Given the patient's description of his symptoms, there is low clinical suspicion for TIA due to the patient describing bilateral acute blurred vision. Patient does have a history of glaucoma and macular degeneration. On exam, the patient endorses episcopalian of his vision with no complaints. The patient and his son expressed understanding in regards to the rare chance that the patient would be experiencing a TIA affecting both eyes. 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 Patient expressed understanding. Patient is medically clear for discharge. Follow up with: MARCOS GOMEZ MD [Primary Care Provider] - 3-5 Days
--- NOTE | 2022-02-28 14:48 | Consultation ---
History of Present Illness Consult date: 02/28/22 Reason for Consult: TIA Chief complaint: Blurred Vision History of present illness: 86 yo right-handed male with afib (tried anticoagulation in the past with bleeding "in the skin", "I'm on [facility] but cannot remember the name of it"), stroke, skin cancer (right face ), who presents with a transient episode of blurred vision (pt confirms no extremity numbness/weakness, slurred speech, imbalance) that lasted for less than 3 hours. He notes he feels better this afternoon. Notes compliance with his medications. Past History Past Medical History: atrial fib, stroke, other (Skin cancer) Past Surgical History: Other (port right chest) Social history: smoking, alcohol abuse Family history: hypertension Medications and Allergies Allergies Allergy/AdvReac Type Severity Reaction Status Date / Time bacitracin Allergy Unknown Verified 02/27/22 22:22 [From Neosporin ([id number])] doxycycline Allergy Unknown Verified 02/27/22 22:22 neomycin Allergy Unknown Verified 02/27/22 22:22 [From Neosporin ([id number])] polymyxin B Allergy Unknown Verified 02/27/22 22:22 [From Neosporin ([id number])] Sulfa (Sulfonamide Allergy Unknown Verified 02/27/22 22:22 Antibiotics) Active Meds: Active Medications Acetaminophen (Acetaminophen 325 Mg Tab) 650 mg PO Q4H PRN PRN Reason: Pain MILD(1-3)/Fever >100.5/BARILLAS Last Admin: 02/28/22 10:05 Dose: 650 mg Albuterol (Albuterol 2.5 Mg/3 Ml Nebu) 2.5 mg IH Q3HRT PRN PRN Reason: Shortness Of Breath Aspirin (Aspirin 325 Mg Tab) 325 mg PO QDAY [facility] Last Admin: 02/28/22 10:05 Dose: 325 mg Atorvastatin Calcium (Atorvastatin 40 Mg Tab) 40 mg PO QHS [facility] Famotidine (Famotidine 20 Mg/2 Ml Inj) 20 mg IV BID [facility] Last Admin: 02/28/22 10:05 Dose: 20 mg Heparin Sodium (Porcine) (Heparin 5,000 Unit/1 Ml Vial) 5,000 unit SUB-Q Q12HR [facility] Last Admin: 02/28/22 10:05 Dose: 5,000 unit Morphine Sulfate (Morphine 2 Mg/1 Ml Inj) 2 mg IV Q4H PRN PRN Reason: Pain, Moderate (4-6) Morphine Sulfate (Morphine 4 Mg/1 Ml Inj) 4 mg IV Q4H PRN PRN Reason: Pain , Severe (7-10) Ondansetron HCl (Ondansetron 4 Mg/2 Ml Inj) 4 mg IV Q8H PRN PRN Reason: Nausea And Vomiting Last Admin: 02/28/22 10:05 Dose: 4 mg Sodium Chloride (Sodium Chloride 0.9% 10 Ml Flush Syringe) 10 ml IV BID [facility] Last Admin: 02/28/22 10:05 Dose: 10 ml Sodium Chloride (Sodium Chloride 0.9% 10 Ml Flush Syringe) 10 ml IV PRN PRN PRN Reason: LINE FLUSH Review of Systems All systems: negative (as per hpi;) Physical Examination - Vital Signs Vital Signs: Vital Signs Temp Pulse Resp BP Pulse Ox 98.3 F 66 20 155/93 98 02/27/22 22:15 02/27/22 22:15 02/27/22 22:15 02/27/22 22:15 02/27/22 22:15 - Physical Exam Narrative exam: Gen: nad; Head: normocephalic; Eyes: no gaze deviation; no ptosis; ENT: normal vocalization; CVS: warm and well-perfused; Pulm: no respiratory distress; GI: appears non-distended; Ext: no cyanosis appreciated at distal extremities; Skin: no acute rash at distal extremities; Heme: no pathologic ecchymosis appreciated at distal extremities; Neuro: alert, oriented to name, age, month, year, surroundings, slight dysarthria, no aphasia, CN 2 - PERRL, visual gutierrez grossly intact, CN 3, 4, 6 - EOMI, CN 5 - facial sensation symmetric to light touch, CN 7 - facial movement symmetric, CN 8 - hearing grossly intact, CN 9, 10 - uvula midline, CN 11 symmetric shoulder movement, CN 12 - tongue midline; Motor - at least 4/5 at all exts except 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; Sensory - light touch symmetric, Cerebellar - fnf /hts slowed/intact, Gait - deferred secondary to fall risk; NIHSS (1a.) Level of Consciousness:0 (1b.) LOC Questions:0 (1c.) LOC Commands:0 (2.) Best Gaze:0 (3.) Visual:0 (4.) Facial Palsy:0 (5a.) Motor Arm, Left:0 (5b.) Motor Arm, Right:0 (6a.) Motor Leg, Left:0 (6b.) Motor Leg, Right:0 (7.) Limb Ataxia:0 (8.) Sensory:0 (9.) Best Language:0 (10.) Dysarthria: 1 (11.) Extinction and Inattention:0 NIHSS Total Score: 1 Results - Laboratory Findings CBC and BMP: 02/27/22 22:35 02/27/22 22:35 Abnormal Lab Findings: Abnormal Labs 02/27/22 02/27/22 22:35 22:35 MCV 97 H MCH 33 H [place] % (Auto) 12.8 H Glucose 126 H Assessment and Plan 86 yo right-handed male with afib (tried anticoagulation in the past with bleeding "in the skin", "I'm on [facility] but cannot remember the [facility] of it"), stroke, skin cancer (right face), who presents with a transient episode of blurred vision (pt confirms no extremity numbness/weakness, slurred speech, imbalance) that lasted for less than 3 hours. 1. TIA - in the differential; continue asa/statin therapy; pt notes he is taking "one other medication" to prevent strokes; if already on plavix or brillinta, continue that regimen; if not, add plavix 75 mg po qday x 21 days; statin therapy for goal ldl of 70; mri brain negative; mra head negative; tte/cus; confirm tsh/ld; recommend watchman procedure since pt has failed anticoagulation in the past for secondary stroke prophylaxis. 2. Blurred Vision - notes improvement; outpatient ophthalmology; other etiologies inculde changes in bp or metabolic/toxic etiology. 3. Afib - please see #1 above; outpatient cardiology evaluation for watchman device. 4. Tobacco Abuse - outpatient smoking cessation program. Bhavesh Mejia MD Neurology [id number]
--- NOTE | 2022-02-28 15:14 | Magnetic Resonance Report ---
MRI BRAIN WITHOUT CONTRAST INDICATION / CLINICAL INFORMATION: stroke, SLURRED SPEECH, DIZZZINESS. TECHNIQUE: Multiplanar, multisequence MR images of the brain were obtained. COMPARISON: None available. FINDINGS: BRAIN / INTRACRANIAL CONTENTS: The third and lateral ventricles are larger than expected for the size of the cortical sulci. This is likely a manifestation of central greater than cortical parenchymal v olume loss. There is little in the way of microvascular ischemic change given the patient's age of 86 years. Only minimal periventricular white matter changes are observed. This can be considered abnorm al findings in this age group. There is no mass effect. No evidence of intracranial hemorrhage or ext ra-axial fluid collection is seen. There is no indication of remote cortical infarction. Diffusion we ighted scans are negative. There is no indication of acute ischemic injury. The brainstem and cerebellum have an unremarkable appearance. CRANIOCERVICAL JUNCTION: No abnormalities are identified at the craniocervical junction. VASCULAR FLOW-VOIDS: Normal flow-voids are present within the major intracranial vessels. ORBITS: Status post bilateral cataract surgery. No additional abnormality. SINUSES / MASTOIDS: There is no indication of inflammatory disease in the paranasal sinuses or mastoi d air cells. Following administration of intravenous contrast material enhancement of normal vascular structures i s demonstrated. No areas of abnormal contrast enhancement are identified. IMPRESSION: 1. Central greater than cortical parenchymal volume loss. 2. No additional abnormality on MRI brain without contrast. Signer Name: Jg Orona MD Signed: 02/28/2022 3:10 PM Workstation Name: [id number]
--- NOTE | 2022-02-28 15:20 | Magnetic Resonance Report ---
MRA HEAD WITHOUT CONTRAST HISTORY: Stroke. Dizziness. COMPARISON: none TECHNIQUE: Routine MRA of the head performed. 3-D/MIP reformats postprocessed. FINDINGS: MRA HEAD: OVERVIEW: There is no evidence of intracranial stenosis or large vessel occlusion. There is no eviden ce of aneurysm or other vascular malformation. Intracranial vertebral arteries: Normal and symmetrical vertebral arteries both contribute to the bas ilar artery origin. Basilar artery: Basilar artery has an unremarkable appearance. Posterior cerebral arteries: Normal and symmetrical appearing posterior cerebral arteries are identif ied. Intracranial internal carotid arteries: No significant abnormality. Anterior cerebral arteries: A1 segments of the anterior cerebral arteries are asymmetrical, left smal ler than right. This is on a developmental basis. An intact anterior communicating artery is identifi ed. No abnormalities are seen along the course of the A2 segments or their pericallosal branches. Middle cerebral arteries: Normal and symmetrical M1 segments are demonstrated bilaterally. No abnorma lities are seen on evaluation of the insular or opercular branches of the middle cerebral arteries. [place] of Nur:Not intact. See above discussion. IMPRESSION: 1. No significant abnormalities are identified on MRA head. Signer Name: Jg Orona MD Signed: 02/28/2022 3:16 PM Workstation Name: [id number]
== END 2022-02-28 16:20 | disposition home health service (06) | DRG 125 ==
LOC: ED 21:46 → 4A 02-28 04:15 → OBSVTOIN 02-28 04:15 → INTOOBSV 02-28 04:15
PROVIDERS: ADMIT Hospitalist; ATTEND Student in an Organized Health Care Education/Training Program
DX: H53.8 Other visual disturbances (principal); I48.91 Unspecified atrial fibrillation; Z87.891 Personal history of nicotine dependence; Z88.2 Allergy status to sulfonamides; Z88.8 Allergy status to other drugs, medicaments and biological substances; Z85.828 Personal history of other malignant neoplasm of skin; Z82.49 Family history of ischemic heart disease and other diseases of the circulatory system; Z86.73 Personal history of transient ischemic attack (TIA), and cerebral infarction without residual deficits
CPT/HCPCS: 36415; 70450; 70544; 70551; 71045; 80053; 83735; 84484; 85025; 85610; 85730; 93005; 96361; 96372; 96374; 96375; G0378; J3490; J1644; J2405; J7030